=== PATIENT | male | born 1980 | race Caucasian/White ===

== ENCOUNTER → 2016-05-06 | Outpatient (CLI) | payer OTHER ==
[~2016-05-06] MED LIST: ACYC800T PO; BUSP-8 PO; CHOL100027 PO; CLC100X PO; CYCL10TA6 PO; DOCU1TAB6 PO; EMTR1TAB PO; METH10CO PO; METH10SO PO; PHEN1CAP PO
[2016-05-06 12:21] LABS: BASO % 0.3 %; BASO ABS # 0.03 K/uL (0-0.2); COMPLETE YES; EOS % 2.9 %; HEMATOCRIT 49.6 % (42-52); IG% 0.2 %; LYMPH % 24.4 %; LYMPH ABS # 2.55 K/uL (1.2-3.4); MEAN CELL VOLUME 94.5 fL (80-100); MEAN CORPUSCULAR HEMOGLOBIN 32.6 pg (25-34); MEAN CORPUSCULAR HGB CONC 34.5 g/dl (32-36); MEAN PLATELET VOLUME 11.2 fL (7.4-10.4); MONO % 4.5 %; NEUT % 67.7 %; PLATELET COUNT 219 K/uL (130-400); RED BLOOD COUNT 5.25 M/uL (4.7-6.1); WHITE BLOOD COUNT 10.45 K/uL (4.8-10.8)
[2016-05-06 12:27] LABS: ALT/SGPT 36 U/L (12-78); BLOOD UREA NITROGEN 14 mg/dl (7-18); BUN/CREATININE RATIO 13.8 (10-20); CALCIUM 9.2 mg/dl (8.5-10.1); CARBON DIOXIDE 26 mmol/L (21-32); CHLORIDE 103 mmol/L (98-107); CHOLESTEROL 217 mg/dl (0-200); CREATININE 0.99 mg/dl (0.60-1.40); GLUCOSE 109 mg/dl (70-99); POTASSIUM 4.3 mmol/L (3.5-5.1); SODIUM 139 mmol/L (136-145); TRIGLYCERIDES 574 mg/dl (0-150)
[2016-05-06 12:30] LABS: ALB/GLOB RATIO 1.4 (0.9-2); ALKALINE PHOSPHATASE 84 U/L (45-117); AST/SGOT 21 U/L (15-37); CHOLESTEROL/HDL RATIO 4.7; HDL CHOLESTEROL 46 mg/dl
[2016-05-10 22:30] LABS: LSP % CELLS ANALYZED CD4 36 % (30-61); LSP ABSOLUTE CT CD4 984 cells/uL (490-1740); LSP LYMPHOCYTES ABSOLUTE 2741 cells/uL (850-3900)
== END | disposition home or self-care (01) ==
LOC: C.LAB1850 10:32
PROVIDERS: ATTEND Internal Medicine
DX: B20 Human immunodeficiency virus [HIV] disease (principal); E78.1 Pure hyperglyceridemia

== ENCOUNTER 2016-07-18 21:26 | Emergency (ER) | payer OTHER ==
[~2016-07-18] VITALS: Ht 167.6 cm; Wt 78.0 kg
[~2016-07-18 21:26] MED LIST changes: -CYCL10TA6 PO; -DOCU1TAB6 PO; -PHEN1CAP PO
[2016-07-18 21:27] VITALS: TEMP 36.9; Ht 167.6 cm; Wt 78.0 kg
[2016-07-18] MEDS ORDERED: CYCLOBENZAPRINE HCL 10 MG TAB PO STA (22:11)
[2016-07-18] MEDS ORDERED: PHEN30CA PO (22:19)
[2016-07-18] MEDS ORDERED: DOCU1TAB6 PO (22:19)
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
[2016-07-18] MEDS ORDERED: CYCL10TA6 PO (23:24)
[2016-07-18] MEDS ORDERED: FLEXERIL HOME PACK 10 MG VIAL PO ONE (23:30)
[2016-07-18 23:33] VITALS: BP 138/81; PULSE 85; O2SAT 100
[2017-02-14] MEDS ORDERED: DOLU1TAB PO (16:39)
[2017-02-14] MEDS ORDERED: EMTR1TAB10 PO (16:40)
[2017-02-14] MEDS ORDERED: CYCL10TA6 PO (18:27)
[2017-02-14] MEDS ORDERED: HYDR-5688 PO (18:27)
== END 2016-07-18 23:33 | disposition home or self-care (01) ==
LOC: C.EDB 21:26 → C.EDD 23:33
DX: S16.1XXA Strain of muscle, fascia and tendon at neck level, initial encounter (principal); V43.62XA Car passenger injured in collision with other type car in traffic accident, initial encounter; Y92.488 Other paved roadways as the place of occurrence of the external cause; F10.20 Alcohol dependence, uncomplicated; F32.9 Major depressive disorder, single episode, unspecified; B20 Human immunodeficiency virus [HIV] disease; K85.90 Acute pancreatitis without necrosis or infection, unspecified; F17.210 Nicotine dependence, cigarettes, uncomplicated; Z79.899 Other long term (current) drug therapy

== ENCOUNTER → 2016-08-04 | Outpatient (CLI) | payer OTHER ==
[~2016-08-04] MED LIST changes: +ALBU18002 INH; +BENZ1CAP90 PO; -CLC100X PO; +CYCL10TA6 PO; +DOCU1TAB6 PO; +DOLU1TAB PO; +EMTR1TAB10 PO; +HYDR-5688 PO; -METH10CO PO; +PHEN30CA PO; +SYMIN160 INH
[2016-08-04 12:08] LABS: BASO % 0.4 %; BASO ABS # 0.03 K/uL (0-0.2); COMPLETE YES; EOS % 3.7 %; HEMATOCRIT 45.9 % (42-52); IG% 0.3 %; LYMPH % 36.6 %; LYMPH ABS # 2.49 K/uL (1.2-3.4); MEAN CELL VOLUME 93.5 fL (80-100); MEAN CORPUSCULAR HEMOGLOBIN 32.2 pg (25-34); MEAN CORPUSCULAR HGB CONC 34.4 g/dl (32-36); MEAN PLATELET VOLUME 10.9 fL (7.4-10.4); MONO % 9.8 %; NEUT % 49.2 %; PLATELET COUNT 251 K/uL (130-400); RED BLOOD COUNT 4.91 M/uL (4.7-6.1); WHITE BLOOD COUNT 6.81 K/uL (4.8-10.8)
[2016-08-04 12:21] LABS: ALT/SGPT 39 U/L (12-78); AST/SGOT 21 U/L (15-37); BLOOD UREA NITROGEN 16 mg/dl (7-18); CALCIUM 9.2 mg/dl (8.5-10.1); CARBON DIOXIDE 27 mmol/L (21-32); CHLORIDE 111 mmol/L (98-107); CREATININE 0.93 mg/dl (0.60-1.40); GLUCOSE 102 mg/dl (70-99); POTASSIUM 3.9 mmol/L (3.5-5.1); SODIUM 144 mmol/L (136-145)
[2016-08-04 12:26] LABS: ALB/GLOB RATIO 1.3 (0.9-2); ALKALINE PHOSPHATASE 77 U/L (45-117); CHOLESTEROL 160 mg/dl (0-200); CHOLESTEROL/HDL RATIO 3.1; HDL CHOLESTEROL 52 mg/dl; LDL CHOLESTEROL CALCULATED 77 mg/dl; TRIGLYCERIDES 156 mg/dl (0-150); VERY LOW DENSITY LIPOPROT CALC 31 mg/dl
[2016-08-05 02:59] LABS: RAPID PLASMA REAGIN REACTIVE (NONREACT)
[2016-08-05 03:00] LABS: RAPID PLASMA REAGIN TITRE 1 DIL (NR)
[2016-08-06 13:34] LABS: LSP % CELLS ANALYZED CD4 36 % (30-61); LSP ABSOLUTE CT CD4 939 cells/uL (490-1740); LSP LYMPHOCYTES ABSOLUTE 2594 cells/uL (850-3900)
== END | disposition home or self-care (01) ==
LOC: C.LAB1850 09:49
PROVIDERS: ATTEND Internal Medicine Infectious Disease
DX: B20 Human immunodeficiency virus [HIV] disease (principal)

== ENCOUNTER 2017-02-23 17:09 | Emergency (ER) | payer OTHER ==
[~2017-02-23] VITALS: Ht 167.6 cm; Wt 74.4 kg
[~2017-02-23 17:09] MED LIST changes: -ALBU18002 INH; -BENZ1CAP90 PO; -CYCL10TA6 PO; -DOCU1TAB6 PO; -EMTR1TAB PO; -METH10SO PO; -PHEN30CA PO; -SYMIN160 INH
[2017-02-23 17:13] VITALS: BP 148/85; TEMP 36.9; Ht 167.6 cm; Wt 74.4 kg
[2017-02-23] MEDS ORDERED: SYMIN160 INH (17:37)
[2017-02-23] MEDS ORDERED: ALBU18002 INH (17:37)
[2017-02-23] MEDS ORDERED: BENZ1CAP90 PO (17:37)
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
[2017-02-23 17:53] VITALS: PULSE 80; O2SAT 100
== END 2017-02-23 17:53 | disposition home or self-care (01) ==
LOC: C.EDB 17:10 → C.EDD 17:53
DX: J20.9 Acute bronchitis, unspecified (principal); Z21 Asymptomatic human immunodeficiency virus [HIV] infection status; F17.200 Nicotine dependence, unspecified, uncomplicated; F10.20 Alcohol dependence, uncomplicated; Z79.51 Long term (current) use of inhaled steroids

== ENCOUNTER → 2017-03-09 | Outpatient (CLI) | payer OTHER ==
[~2017-03-09] MED LIST changes: +ALBU18002 INH; -HYDR-5688 PO; +OPTIRAY 320 IV PRN
--- NOTE | 2017-03-09 18:13 | DIAGNOSTIC IMAGING REPORT ---
(CHEST FOR PE) ANGIO WITH CLINICAL HISTORY: 36 years-old Male presenting with ^ABNORMAL EKG,COUGH, clinical concern for pulmonary embolus. TECHNIQUE: Multidetector CT angiography of the chest was performed after administration of intravenous contrast. 3-D volumetric and/or maximum intensity projection (MIP) images were subsequently reconstructed for review. IV contrast: 88 mL of Optiray 320. A dose lowering technique was used consistent with the principles of ALARA (as low as reasonably achievable). COMPARISON: Noncontrast CT chest from 04/18/2015. CT DOSE (mGy.cm): The estimated cumulative dose is 314.48 mGy.cm. FINDINGS: Exercise Instruct topogram: Unremarkable. Pulmonary vasculature: The study is adequate for assessment of the pulmonary vascular tree. No filling defect within the pulmonary arteries to suggest embolus. Main pulmonary artery is not enlarged. No flattening of the interventricular septum. No intracardiac intracardiac filling defect. No reflux of contrast into the hepatic veins. Remaining chest: On soft tissue windows, normal thyroid and thoracic inlet. No axillary, supraclavicular, hilar, or mediastinal lymphadenopathy. Normal aorta. Normal heart size. No pericardial or pleural effusion. Upper abdomen normal. On lung windows, minimal dependent opacities likely atelectasis. No other focal infiltrate. Airways patent. On bone windows, normal osseous structures. IMPRESSION: 1. No evidence of pulmonary embolus. No acute intrathoracic pathology. Electronically signed by: Filemon Mccauley M.D. 03/09/2017 6:12 PM Dictated Date/Time: 03/09/2017 6:06 PM
== END | disposition home or self-care (01) ==
LOC: C.CTS 17:24
PROVIDERS: ATTEND Physician Assistant Medical
DX: R94.31 Abnormal electrocardiogram [ECG] [EKG] (principal); R05 Cough

== ENCOUNTER 2017-04-10 14:20 | Emergency (ER) | payer OTHER ==
[~2017-04-10] VITALS: Ht 167.6 cm; Wt 73.0 kg
[~2017-04-10 14:20] MED LIST changes: -ACYC800T PO; -BUSP-8 PO; -CHOL100027 PO; -DOLU1TAB PO; -EMTR1TAB10 PO; -OPTIRAY 320 IV PRN
[2017-04-10 14:22] VITALS: TEMP 37; Ht 167.6 cm; Wt 73.0 kg
[2017-04-10] MEDS ORDERED: HYDROCODONE/HOMATROPINE SYRUP 5MG/1.5MG 5ML UDP PO STA (14:29)
[2017-04-10] MEDS ORDERED: ALBUTEROL HFA 8 GM INHALER INH ONE (14:30)
--- NOTE | 2017-04-10 14:34 | EMERGENCY ROOM VISIT NOTE ---
History Report prepared by Mason: Zachary Kemp Under the Supervision of: Dr. Yonny Livingston M.D. First contact with patient: 14:23 Chief Complaint: COUGH Stated Complaint: PERSISTENT DRY COUGH, CONGESTION History of Present Illness The patient is a 37 year old male who presents to the Emergency Room with complaints of a persistent cough that started 3 days ago. He states that he was here a month ago with a similar cough and was diagnosed with bronchitis, and was treated and was doing well until 3 days ago. He says that the cough is mostly dry, except for a bit of phlegm that is produced in the shower in the morning. He notes that the congestion is in his chest, and denies any notable nasal congestion. He also denies any fevers. The patient says that he had a script sent in for an inhaler, but insurance did not cover it. He states that he is a current smoker. The patient has no history of asthma. The patient had a CT of his chest done on March 09. There was no pulmonary embolism seen at that time. Source of History: patient Onset: 3 days ago Position: other (global - cough) Symptom Intensity: had bronchitis a month ago Quality: other (mostly dry) Timing: other (persistent) Associated Symptoms: No fevers Note: Associated symptoms: Chest congestion. Denies nasal congestion. Review of Systems See HPI for pertinent positives & negatives. A total of 10 systems reviewed and were otherwise negative. Past Medical & Surgical Medical Problems: (1) Acute drug intoxication (2) Alcohol dependence (3) clostridium difficile (4) Constipation (5) Depressive disorder (6) Fracture of calcaneus (7) Genital Herpes Nos (8) HUMAN IMMUNODEFICIENCY VIRUS [HIV] DISEASE (9) Muscle spasm of left shoulder (10) Neck pain on right side (11) Pancreatitis (12) Rotator cuff strain (13) Suicide-Drug/Medicin Nec (14) Superficial burn of hand (15) Tobacco Use Disorder Family History No pertinent family history Social History Smoking Status: Current Every Day Smoker Alcohol Use: occasionally Drug Use: other Marital Status: single Housing Status: lives alone Occupation Status: employed Current/Historical Medications Scheduled Albuterol Hfa (Ventolin Hfa), 3 PUFFS INH Q6H Buspirone Hcl (Buspirone Hcl), 10 MG PO HS Cholecalciferol (Vitamin D 1000 Unit), 1,000 INTER.UNIT PO DAILY Dolutegravir Sodium (Tivicay), Unknown Dose PO DAILY Emtricitabine-Tenofovir Alafen (Descovy 200-25 mg), 1 TAB PO DAILY Scheduled PRN Acyclovir (Zovirax), 800 MG PO Q8 PRN for Cold Sores Hydrocodone W/ Homatropine (Hycodan 5/1.5MG 5 Ml), 5-10 ML PO Q4H PRN for Cough Allergies Coded Allergies: No Known Allergies (Unverified , NONE, 04/10/17) Physical Exam Vital Signs Date Time Temp Pulse Resp B/P (MAP) Pulse Ox O2 Delivery O2 Flow Rate FiO2 04/10/17 15:33 101 18 151/94 99 04/10/17 14:22 37.0 107 16 149/85 97 Room Air Physical Exam GENERAL: Patient is in no acute distress. HEENT: No acute trauma, normocephalic atraumatic, mucous membranes moist, no nasal congestion, no scleral icterus. No throat erythema or exudate. NECK: No stridor, no adenopathy, no meningismus, trachea is midline. LUNGS: Decreased breath sounds bilaterally. Dry cough noted, no wheezing or rhonchi. HEART: Without murmurs gallops or rubs, regular rate and rhythm. ABDOMEN: Soft, nontender, bowel sounds positive, no hernias, no peritonitis. EXTREMITIES: No cyanosis or edema, full range of motion of all the joints without pain or difficulty, no signs for acute trauma. NEUROLOGIC: Oriented x 3, no acute motor or sensory deficits, no focal weakness. SKIN: No rash, no jaundice, no diaphoresis. Medical Decision & Procedures ER Provider Diagnostic Interpretation: X-ray results as stated below per interpretation by me and the radiologist: SINGLE VIEW CHEST CLINICAL HISTORY: Cough. FINDINGS: An AP, portable, upright chest radiograph is compared to study dated 03/08/2013 and correlated with chest CT dated 03/09/2017. Pressure degraded The cardiomediastinal silhouette is unremarkable. The lungs and pleural spaces are clear. No pneumothorax is seen. The bony thorax is grossly intact. IMPRESSION: No acute cardiopulmonary abnormality. Electronically signed by: Yonny Garcia M.D. 04/10/2017 2:42 PM Dictated Date/Time: 04/10/2017 2:41 PM Medications Administered Medications (Trade) Dose Ordered Sig/Tammie Route Start Time Stop Time Status Last Admin Dose Admin Albuterol (Ventolin Hfa Inhaler) 3 puffs NOW ONCE INH 04/10/17 14:30 04/10/17 14:31 DC 04/10/17 15:05 3 PUFFS Hydrocodone Bit/ Homatropine Methylb (Hycodan Syrup) 5 ml NOW STAT PO 04/10/17 14:29 04/10/17 14:31 DC 04/10/17 15:05 5 ML ED Course 1426: The patient was evaluated in room A10. A complete history and physical exam was performed. 1429: Ordered Hycodan Syrup 5 ml PO. 1430: Ordered Ventolin Hfa Inhaler 3 puffs INH. 1515: Reevaluated the patient and he is resting comfortably. Discussed results and discharge instructions: he verbalized understanding and agreement. The patient is ready for discharge. Medical Decision Differential diagnosis includes but is not limited to bronchitis or pneumonia, pneumothorax, pharyngitis, flu-like illness, bronchospasm. The patient presents to the ER with a cough. On exam, he has diminished breath sounds. There is no pharyngitis. He was not febrile or toxic. He was not hypoxic. Chest film does not show pneumonia, CHF or pneumothorax. The patient has acute bronchitis, likely viral. He is being discharged on albuterol and Hycodan. Doses of each were given here. Patient was encouraged to return for worsening symptoms. [place] Drug Monitoring Program Search Results: patient reviewed within database, no issues identified Medication Reconcilliation Current Medication List: was personally reviewed by me Blood Pressure Screening Patient's blood pressure: Elevated blood pressure Blood pressure disposition: Elevated BP felt to be situational Impression Primary Impression: Acute bronchitis Additional Impression: Cough Scribe Attestation The scribe's documentation has been prepared under my direction and personally reviewed by me in its entirety. I confirm that the note above accurately reflects all work, treatment, procedures, and medical decision making performed by me. Departure Information Dispostion Home / Self-Care Prescriptions Albuterol Hfa (VENTOLIN HFA) 200 Puffs/56011 Mcg Aers 3 PUFFS INH Q6H, #1 INHALER Prov: Yonny Livingston M.D. 04/10/17 Hydrocodone W/ Homatropine (HYCODAN 5/1.5MG 5 ML) 1 Syp Syp 5-10 ML PO Q4H Y for Cough, #120 ML Prov: Yonny Livingston M.D. 04/10/17 Referrals Augustin Pacheco M.D. (PCP) Forms HOME CARE DOCUMENTATION FORM, IMPORTANT VISIT INFORMATION Patient Instructions My [facility] Additional Instructions rest fluids albuterol 3 puffs every 4 hours hycodan 1 tsp every 4 hours for cough as needed return if worsening chest film today was clear Problem Qualifiers
--- NOTE | 2017-04-10 14:43 | DIAGNOSTIC IMAGING REPORT ---
SINGLE VIEW CHEST CLINICAL HISTORY: Cough. FINDINGS: An AP, portable, upright chest radiograph is compared to study dated 03/08/2013 and correlated with chest CT dated 03/09/2017. Pressure degraded The cardiomediastinal silhouette is unremarkable. The lungs and pleural spaces are clear. No pneumothorax is seen. The bony thorax is grossly intact. IMPRESSION: No acute cardiopulmonary abnormality. Electronically signed by: Yonny Garcia M.D. 04/10/2017 2:42 PM Dictated Date/Time: 04/10/2017 2:41 PM
[2017-04-10] MEDS ORDERED: VNTHFA/IN INH (15:17)
[2017-04-10] MEDS ORDERED: HYDR5SYP11 PO (15:17)
[2017-04-10 15:33] VITALS: BP 151/94; PULSE 101; O2SAT 99
[2017-05-04] MEDS ORDERED: CHOL100027 PO (07:33)
[2017-05-04] MEDS ORDERED: ACYC800T PO (13:46)
[2017-05-04] MEDS ORDERED: BUSP-8 PO (13:46)
[2017-05-04] MEDS ORDERED: DOLU1TAB PO (16:39)
[2017-05-04] MEDS ORDERED: EMTR1TAB10 PO (16:40)
== END 2017-04-10 15:36 | disposition home or self-care (01) ==
LOC: C.EDB 14:21 → C.EDA 15:36
DX: J20.9 Acute bronchitis, unspecified (principal); F17.210 Nicotine dependence, cigarettes, uncomplicated; J45.909 Unspecified asthma, uncomplicated; F32.9 Major depressive disorder, single episode, unspecified

== ENCOUNTER 2017-05-04 17:13 | Emergency (ER) | payer OTHER ==
[~2017-05-04] VITALS: Ht 167.6 cm; Wt 74.1 kg
[~2017-05-04 17:13] MED LIST changes: +ACYC800T PO; -ALBU18002 INH; +BUSP-8 PO; +CHOL100027 PO; +DOLU1TAB PO; +EMTR1TAB10 PO; +VNTHFA/IN INH
[2017-05-04 17:31] VITALS: BP 148/94; PULSE 84; TEMP 36.8; O2SAT 98; Ht 167.6 cm; Wt 74.1 kg
[2017-05-04] MEDS ORDERED: VNTHFA/IN INH (17:51)
--- NOTE | 2017-05-04 18:03 | EMERGENCY ROOM VISIT NOTE ---
ED Visit Note First contact with patient: 17:37 CHIEF COMPLAINT: Needs tongue biopsy HISTORY of present illness: This 37-year-old male presents the ER with chief complaint that he needs a tongue biopsy. The patient was at [facility] and was told that he has white patches on the right side of his tongue which are suspicious for cancer. They referred him to an oral surgeon in [place]. The patient states they told him to get it done as soon as possible. He states he cannot get there until next week. The patient states that he has a throbbing pain on the opposite side of his tongue. The patient admits to smoking tobacco but denies any chewing tobacco. REVIEW OF SYSTEMS: 6 system review was performed and was negative unless stated otherwise in history of present illness. PMH: The patient is healthy; see chronic problem list SOCIAL HISTORY: Patient has a history of alcohol abuse. Patient admits to smoking tobacco. PHYSICAL EXAM: Vital Signs: Were reviewed Reviewed Nurse's notes. GENERAL: 37- year-old white male appears in no acute distress. MENTAL STATUS: Alert and oriented. MOUTH: On the right lateral aspect of the tongue there are 2 white irregular patches .the left side of the tongue without any lesions. NECK: Supple, no lymphadenopathy noted EMERGENCY COURSE: The patient was evaluated. I discussed with the patient that we do not do biopsies in the emergency room. He then went on to say that he was here for pain on the opposite side of his tongue. I told him to use Orajel and the patient got up and left the ER. DIAGNOSIS: Leukoplakia TREATMENT PLAN: Follow up with oral surgery as recommended by your dentist. 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 Status: Chronic (9) Muscle spasm of left shoulder Status: Resolved (10) Neck pain on right side Status: Resolved (11) Pancreatitis Status: Resolved (12) Rotator cuff strain Status: Resolved (13) Suicide-Drug/Medicin Nec Status: Resolved (14) Superficial burn of hand Status: Resolved (15) Tobacco Use Disorder Status: Chronic Current/Historical Medications Scheduled Buspirone Hcl (Buspirone Hcl), 10 MG PO HS Cholecalciferol (Vitamin D 1000 Unit), 1,000 INTER.UNIT PO DAILY Dolutegravir Sodium (Tivicay), 50 MG PO DAILY Emtricitabine-Tenofovir Alafen (Descovy 200-25 mg), 1 TAB PO DAILY Scheduled PRN Acyclovir (Zovirax), 800 MG PO Q8 PRN for Cold Sores Albuterol Hfa (Ventolin Hfa), 3 PUFFS INH Q6H PRN for SOB/Wheezing Allergies Coded Allergies: No Known Allergies (Unverified , NONE, 04/10/17) Vital Signs Date Time Temp Pulse Resp B/P (MAP) Pulse Ox O2 Delivery O2 Flow Rate FiO2 05/04/17 17:31 36.8 84 18 148/94 98 Room Air Departure Information Referrals Augustin Pacheco M.D. (PCP) Patient Instructions My [facility]
== END 2017-05-04 17:59 | disposition home or self-care (01) ==
LOC: C.EDB 17:16 → C.EDD 17:59
DX: K13.21 Leukoplakia of oral mucosa, including tongue (principal); F17.200 Nicotine dependence, unspecified, uncomplicated; F10.20 Alcohol dependence, uncomplicated; F32.9 Major depressive disorder, single episode, unspecified; A60.02 Herpesviral infection of other male genital organs; B20 Human immunodeficiency virus [HIV] disease; Z86.19 Personal history of other infectious and parasitic diseases

== ENCOUNTER → 2017-08-10 | Outpatient (CLI) | payer OTHER ==
[2017-08-10 12:42] LABS: BASO % 0.5 %; BASO ABS # 0.03 K/uL (0-0.2); EOS % 1.7 %; EOS ABS # 0.11 K/uL (0-0.5); HEMATOCRIT 43.2 % (42-52); IG# 0.02 K/uL (0.00-0.02); LYMPH % 31.6 %; LYMPH ABS # 2.02 K/uL (1.2-3.4); MEAN CELL VOLUME 94.9 fL (80-100); MEAN CORPUSCULAR HGB CONC 34.7 g/dl (32-36); MEAN PLATELET VOLUME 10.9 fL (7.4-10.4); MONO % 12.2 %; MONO ABS # 0.78 K/uL (0.11-0.59); NEUT % 53.7 %; NEUT ABS # 3.43 K/uL (1.4-6.5); PLATELET COUNT 214 K/uL (130-400); RED CELL DISTRIBUTION WIDTH CV 13.2 % (11.5-14.5); RED CELL DISTRIBUTION WIDTH SD 45.6 fL (36.4-46.3); WHITE BLOOD COUNT 6.39 K/uL (4.8-10.8)
[2017-08-10 13:16] LABS: BLOOD UREA NITROGEN 14 mg/dl (7-18); CALCIUM 8.8 mg/dl (8.5-10.1); CARBON DIOXIDE 28 mmol/L (21-32); CREATININE 0.83 mg/dl (0.60-1.40); GLUCOSE 101 mg/dl (70-99); POTASSIUM 4.3 mmol/L (3.5-5.1); SODIUM 140 mmol/L (136-145)
[2017-08-12 20:32] LABS: EBV EARLY ANTIGEN AB < 9.00 U/ML; LSP % CELLS ANALYZED CD4 41 % (30-61); LSP ABSOLUTE CT CD4 844 cells/uL (490-1740)
== END | disposition home or self-care (01) ==
LOC: C.LAB1850 10:29
PROVIDERS: ATTEND Internal Medicine Infectious Disease
DX: R05 Cough (principal); B20 Human immunodeficiency virus [HIV] disease

== ENCOUNTER 2018-06-25 15:50 | Inpatient (IN) ==
[2018-06-25] MEDS ORDERED: LORazepam 1 MG TAB PO STA (16:29)
[2018-06-25 16:37] LABS: Appearance Urine Clear (Clear); Bilirubin Urine Negative (Negative); Blood Urine Negative (Negative); Color Urine Yellow; Glucose Urine UA Negative (Negative); Ketones Urine Negative (Negative); Leukocyte Esterase Urine Negative (Negative); Nitrite Urine Negative (Negative); Protein Urine Negative (Negative); Specific Gravity Urine 1.022 (1.000-1.030); Urobilinogen Urine Negative (Negative); pH Urine 5.5 (4.5-7.5)
[2018-06-25 16:55] LABS: Amphetamines+Metham, Urine Neg (Neg); Barbiturates, Urine Neg (Neg); Benzodiazepine, Urine Neg (Neg); Cocaine, Urine Neg (Neg); MDMA (Ecstacy), Urine Neg (Neg); Methadone, Urine Neg (Neg); Opiate, Urine Neg (Neg); Phencyclidine, Urine Neg (Neg)
--- NOTE | 2018-06-25 17:01 | Emergency Department Note ---
Entered by Nuvia Callaway acting as a scribe for History of Present Illness General Chief complaint: Mental Health Evaluation Stated complaint: MENTAL HEALTH EVAL Source: patient History of Present Illness Provider complaint: mental health evaluation Onset (ago): hour(s) (today) Location: head Pain Consistency: + constant Maximum Pain Intensity: 8 Quality: + other (mental health evaluation) Associated symptoms: + other (thoughts of wanting to hurt himself) The patient is a 38 year old male who presents to the Emergency Room with complaints of a mental health evaluation today. The patient states that "everything is on my plate right now." He states that he has lost 30 pounds in the last 6 months. The patient states that he was smoking crystal meth a couple times per week and states that he last used it 3 days ago. The patient states that he also mixed it with GHP. He also reports that he slept about 18 hours over a course of 2 weeks. The patient denies heroine use. He states that he has had thoughts of wanting to hurt himself and reports feeling overwhelmed. The patient states that he was thinking of taking benzos. He also reports that he found his neighbor who hanged himself last year. The patient states that he was admitted in 2007 as he called [facility] and said that he was either going to kill himself or someone else. Home Medications Home Medications Medication Instructions Recorded Confirmed Type CHOLECALCIFEROL (VITAMIN D 1000 1,000 inter.unit PO DAILY #0 cap 11/26/11 06/25/18 History UNIT) BUSPIRONE HCL 10 mg PO HS #0 tab 09/12/14 06/25/18 History DOLUTEGRAVIR SODIUM (TIVICAY) 50 mg PO DAILY #0 02/14/17 06/25/18 History Emtricitabine-Tenofovir Alafen 1 tab PO DAILY #0 02/14/17 06/25/18 History (Descovy 200-25 mg) Allergies Allergy/AdvReac Type Severity Reaction Status Date / Time No Known Allergies Allergy NONE Unverified 04/10/17 14:47 Past Med/Surg History Medical History Anxiety (Chronic) Social History Preferred Language: Bulgarian Communication Ability: Effective Manager Of Global Required: No Beliefs That Will Affect Care: None (Billie, attends [facility] at times ) Feels Safe at Home: Yes Smoking Status: Former smoker (quit 06/22/18) Review of Systems See HPI for pertinent positives & negatives. and A total of 10 systems reviewed and were otherwise negative Physical Exam Vital Signs Vital Signs - 24 hr 06/25/18 18:22 06/25/18 20:09 06/25/18 20:49 Temperature 36.5 C Temperature Source Oral Pulse Rate 82 Pulse Rate [Finger] 95 H 75 Pulse Rate [Left Brachial] Pulse Rhythm [Finger] Regular Pulse Rhythm [Left Brachial] Pulse Strength [Finger] Normal Pulse Strength [Left Brachial] Respiratory Rate 17 18 18 Respiratory Effort / Characteristics Non-Labored Respiratory Depth Normal Respiratory Pattern Regular Blood Pressure 130/68 Blood Pressure [Left Arm] Blood Pressure [Right Arm] 140/74 120/69 Blood Pressure Mean [Left Arm] Blood Pressure Mean [Right Arm] 96 86 Blood Pressure Position [Left Arm] Blood Pressure Position [Right Arm] Lying Sitting Pulse Oximetry 99 99 98 Oxygen Delivery Method Room Air Room Air Room Air 06/26/18 06:44 06/26/18 06:46 Temperature 36.6 C Temperature Source Oral Pulse Rate Pulse Rate [Finger] Pulse Rate [Left Brachial] 69 82 Pulse Rhythm [Finger] Pulse Rhythm [Left Brachial] Regular Regular Pulse Strength [Finger] Pulse Strength [Left Brachial] Normal Normal Respiratory Rate 16 Respiratory Effort / Characteristics Non-Labored Respiratory Depth Normal Respiratory Pattern Regular Blood Pressure Blood Pressure [Left Arm] 107/72 115/81 Blood Pressure [Right Arm] Blood Pressure Mean [Left Arm] 83 92 Blood Pressure Mean [Right Arm] Blood Pressure Position [Left Arm] Lying Sitting Blood Pressure Position [Right Arm] Pulse Oximetry Oxygen Delivery Method GENERAL: Patient is awake alert in no acute distress patient is resting comfortably and showing no signs of anxiety EYES: The conjunctivae are clear. The pupils are round and reactive. EARS, NOSE, MOUTH AND THROAT: The nose is without any evidence of any deformity. Mucous membranes are moist tongue is midline NECK: The neck is nontender and supple. RESPIRATORY: Normal respiratory effort is noted there is no evidence of wheezing rhonchi or rales CARDIOVASCULAR: Regular rate and rhythm noted there no murmurs rubs or gallops normal S1 normal S2 GASTROINTESTINAL: The abdomen is soft. Bowel sounds are present in all quadrants. Abdomen is nontender MUSCULOSKELETAL/EXTREMITIES: There is no evidence of gross deformity full range of motion is noted in the hips and shoulders SKIN: There is no obvious evidence of any rash. There are no petechiae, pallor or cyanosis noted. NEUROLOGIC: Patient is awake alert and oriented x3 strength is symmetric patellar reflexes are 2+ bilaterally PSYCH: Patient is awake and alert. Patient has suicidal ideation with plan to overdose on pills. Patient's affect is flat. Course 1616: Past medical records reviewed. The patient was evaluated in room A5, and a complete history and physical examination were performed. 184: The patient was referred to [facility]. 2030: The patient was signed out to Dr. Nino. Administered Medications Atomoxetine HCl (Strattera) 40 mg PO QAM [facility] Stop: 06/29/18 09:01 Last Admin: 06/26/18 13:20 Dose: 40 mg Documented by: [id number] Dolutegravir Sodium (Tivicay) 1 ea PO DAILY LISA Stop: 07/26/18 08:59 Last Admin: 06/26/18 11:53 Dose: 1 ea Documented by: [id number] Hydroxyzine HCl (Vistaril) 50 mg PO HSZ PRN PRN Reason: Insomnia Stop: 07/25/18 20:32 Last Admin: 06/25/18 22:29 Dose: 50 mg Documented by: [id number] Hydroxyzine HCl (Vistaril) 25 mg PO Q4H PRN PRN Reason: Anxiety Stop: 07/25/18 20:32 Last Admin: 06/26/18 11:52 Dose: 25 mg Documented by: [id number] Pt's Own Med: Descovy 200mg/25mg Tab 1 ea PO DAILY LISA Stop: 07/26/18 08:59 Last Admin: 06/26/18 11:53 Dose: 1 tabs Documented by: [id number] Vitamin D (Vitamin D3) 1,000 units PO QAM LISA Stop: 07/26/18 08:59 Last Admin: 06/26/18 11:52 Dose: 1,000 units Documented by: [id number] Discontinued Medications Buspirone HCl (Buspar) 10 mg PO ONE ONE Stop: 06/25/18 22:31 Last Admin: 06/25/18 22:29 Dose: 10 mg Documented by: [id number] Influenza Virus Vaccine Quadrival (Flucelvax Quad Vaccine) 0.5 ml IM .ONCE ONE Stop: 06/26/18 05:46 Last Admin: 06/26/18 11:56 Dose: Not Given Documented by: [id number] Lorazepam (Ativan) 1 mg PO NOW STA Stop: 06/25/18 16:30 Last Admin: 06/25/18 16:34 Dose: 1 mg Documented by: [id number] Lorazepam (Ativan) 1 mg SL NOW STA Stop: 06/25/18 19:32 Last Admin: 06/25/18 19:36 Dose: 1 mg Documented by: [id number] Miscellaneous (Order Awaiting Action) 1 ea N/A QS LISA Stop: 07/25/18 21:59 Last Admin: 06/25/18 22:32 Dose: Not Given Documented by: [id number] Miscellaneous (Order Awaiting Action) 1 ea N/A QS LISA Stop: 07/25/18 21:59 Last Admin: 06/25/18 22:32 Dose: Not Given Documented by: [id number] Pneumococcal Polyvalent Vaccine (Pneumovax-23) 25 mcg IM .ONCE ONE Stop: 06/26/18 05:46 Last Admin: 06/26/18 11:57 Dose: Not Given Documented by: [id number] Medical Decision Making Differential Diagnosis Differential diagnosis: Etiologies such as psychiatric disorder, infection, hypoglycemia, electrolyte abnormalities, cardiac sources, intracerebral event, toxicological process, neurologic disorder, as well as others were entertained. Medical Records Attestation: I reviewed the patient's medical records. Home Medications Current Medication List: was personally reviewed by me Laboratory Data Attestation: I reviewed the patient's lab results. Result diagrams: 06/25/18 16:46 06/25/18 16:46 Lab Results 06/25/18 06/25/18 06/25/18 Range/Units 16:10 16:10 16:46 WBC 8.90 (4.8-10.8) K/uL RBC 4.68 L (4.7-6.1) M/uL Hgb 15.3 (14.0-18.0) g/dL Hct 44.8 (42-52) % MCV 95.7 (80-100) fL MCH 32.7 (25-34) pg MCHC 34.2 (32-36) g/dL RDW Std Deviation 46.1 (36.4-46.3) fL RDW Coeff of [place] 13.2 (11.5-14.5) % Plt Count 270 (130-400) K/uL MPV 10.0 (7.4-10.4) fL Immature Gran % (Auto) 0.3 % Neut % (Auto) 69.6 % Lymph % (Auto) 22.2 % Swift % (Auto) 7.1 % Eos % (Auto) 0.7 % Baso % (Auto) 0.1 % Immature Gran # (Auto) 0.03 H (0.00-0.02) K/uL Neut # (Auto) 6.19 (1.4-6.5) K/uL Lymph # (Auto) 1.98 (1.2-3.4) K/uL Swift # (Auto) 0.63 H (0.11-0.59) K/uL Eos # (Auto) 0.06 (0-0.5) K/uL Baso # (Auto) 0.01 (0-0.2) K/uL Sodium (136-145) mmol/L Potassium (3.5-5.1) mmol/L Chloride (98-107) mmol/L Carbon Dioxide (21-32) mmol/L Anion Gap (3-11) BUN (7-18) mg/dl Creatinine (0.6-1.4) mg/dl Est Cr Clr Drug Dosing ml/min Est GFR ( Amer) Est GFR (Non-Af Amer) BUN/Creatinine Ratio (10-20) Glucose (70-99) mg/dl Calcium (8.5-10.1) mg/dl Total Bilirubin (0.2-1) mg/dl AST (15-37) U/L ALT (12-78) U/L Alkaline Phosphatase (45-117) U/L Total Protein (6.4-8.2) gm/dl Albumin (3.4-5.0) gm/dl Globulin (2.5-4.0) gm/dl Albumin/Globulin Ratio (0.9-2) TSH (0.300-4.500) uIu/ml Urine Color Yellow Urine Appearance Clear (Clear) Urine pH 5.5 (4.5-7.5) Ur Specific [place] 1.022 (1.000-1.030) Urine Protein Negative (Negative) Urine Glucose (UA) Negative (Negative) Urine Ketones Negative (Negative) Urine Blood Negative (Negative) Urine Nitrite Negative (Negative) Urine Bilirubin Negative (Negative) Urine Urobilinogen Negative (Negative) Ur Leukocyte Esterase Negative (Negative) Salicylates (2.8-20) mg/dl Urine Opiates Screen Neg (Neg) Ur Methadone, Qual Neg (Neg) Acetaminophen (10-30) ug/ml Urine Barbiturates Neg (Neg) Ur Phencyclidine (PCP) Neg (Neg) U Amphetamin/Meth Scrn Neg (Neg) MDMA (Ecstasy) Screen Neg (Neg) U Benzodiazepines Scrn Neg (Neg) Ur Cocaine Metabolite Neg (Neg) U Marijuana (THC) Screen Neg (Neg) Ethyl Alcohol mg/dL (0-3) mg/dl 06/25/18 06/25/18 06/25/18 Range/Units 16:46 16:46 16:46 WBC (4.8-10.8) K/uL RBC (4.7-6.1) M/uL Hgb (14.0-18.0) g/dL Hct (42-52) % MCV (80-100) fL MCH (25-34) pg MCHC (32-36) g/dL RDW Std Deviation (36.4-46.3) fL RDW Coeff of [place] (11.5-14.5) % Plt Count (130-400) K/uL MPV (7.4-10.4) fL Immature Gran % (Auto) % Neut % (Auto) % Lymph % (Auto) % Swift % (Auto) % Eos % (Auto) % Baso % (Auto) % Immature Gran # (Auto) (0.00-0.02) K/uL Neut # (Auto) (1.4-6.5) K/uL Lymph # (Auto) (1.2-3.4) K/uL Swift # (Auto) (0.11-0.59) K/uL Eos # (Auto) (0-0.5) K/uL Baso # (Auto) (0-0.2) K/uL Sodium 137 (136-145) mmol/L Potassium 4.2 (3.5-5.1) mmol/L Chloride 104 (98-107) mmol/L Carbon Dioxide 31 (21-32) mmol/L Anion Gap 2.0 L (3-11) BUN 13 (7-18) mg/dl Creatinine 0.86 (0.6-1.4) mg/dl Est Cr Clr Drug Dosing 101.3 ml/min Est GFR ( Amer) 126.6 Est GFR (Non-Af Amer) 109.2 BUN/Creatinine Ratio 15.8 (10-20) Glucose 80 (70-99) mg/dl Calcium 8.3 L (8.5-10.1) mg/dl Total Bilirubin 0.3 (0.2-1) mg/dl AST 13 L (15-37) U/L ALT 25 (12-78) U/L Alkaline Phosphatase 62 (45-117) U/L Total Protein 6.5 (6.4-8.2) gm/dl Albumin 3.2 L (3.4-5.0) gm/dl Globulin 3.3 (2.5-4.0) gm/dl Albumin/Globulin Ratio 1.0 (0.9-2) TSH 0.780 (0.300-4.500) uIu/ml Urine Color Urine Appearance (Clear) Urine pH (4.5-7.5) Ur Specific [place] (1.000-1.030) Urine Protein (Negative) Urine Glucose (UA) (Negative) Urine Ketones (Negative) Urine Blood (Negative) Urine Nitrite (Negative) Urine Bilirubin (Negative) Urine Urobilinogen (Negative) Ur Leukocyte Esterase (Negative) Salicylates < 1.7 L (2.8-20) mg/dl Urine Opiates Screen (Neg) Ur Methadone, Qual (Neg) Acetaminophen < 2 L (10-30) ug/ml Urine Barbiturates (Neg) Ur Phencyclidine (PCP) (Neg) U Amphetamin/Meth Scrn (Neg) MDMA (Ecstasy) Screen (Neg) U Benzodiazepines Scrn (Neg) Ur Cocaine Metabolite (Neg) U Marijuana (THC) Screen (Neg) Ethyl Alcohol mg/dL < 3.0 (0-3) mg/dl Blood Pressure Blood Pressure Findings: Normal blood pressure MDM Narrative The patient is a 38-year-old male who presented to the emergency department for mental health evaluation. The patient also has some recent substance abuse history. The patient was reevaluated multiple times. The patient was medically cleared in the emergency department. He was evaluated by the mental health onsite case manager and was felt to be a good candidate for inpatient management. The patient was treated with Ativan in the emergency department. Doing much better on subsequent reevaluation. The patient was felt to be a good candidate for inpatient management. A referral was made for inpatient management. The patient was comfortable and was agreeable to inpatient treatment. The patient was signed out to Dr. Nino at change of shift. Please see his note for final disposition and plan. Impression & Plan Depression, Substance abuse, Suicidal ideation Discharge Plan Visit Data *Final* Discharge Date/Time: 06/25/18 20:09 Chief Complaint: Mental Health Evaluation Stated Complaint: MENTAL HEALTH EVAL ED Provider: Faraz Baptiste Discharge Problem: Depression, Substance abuse, Suicidal ideation Patient Disposition: Admitted As Inpatient Discharge Instructions Interventions: ED Discharge Assessment Last Done: 06/25/18 20:09 Discharge Problem: Depression Qualifiers: Depression Type: unspecified Qualified Code(s): F32.9 - Major depressive disorder, single episode, unspecified The scribe's documentation has been prepared under my direction and personally reviewed by me in its entirety. I confirm that the note above accurately reflects all work, treatment, procedures, and medical decision making performed by me.
[2018-06-25 17:02] LABS: Basophils # (auto) 0.01 K/uL (0-0.2); Basophils % (auto) 0.1 %; Eosinophils # (auto) 0.06 K/uL (0-0.5); Eosinophils % (auto) 0.7 %; Hematocrit (blood only) 44.8 % (42-52); Hemoglobin 15.3 g/dL (14.0-18.0); Immature Granulocytes # (auto) 0.03 K/uL (0.00-0.02); Immature Granulocytes % (auto) 0.3 %; Lymphocytes # (auto) 1.98 K/uL (1.2-3.4); Lymphocytes % (auto) 22.2 %; Mean Corpuscular Hgb Conc 34.2 g/dL (32-36); Mean Corpuscular Volume 95.7 fL (80-100); Monocytes # (auto) 0.63 K/uL (0.11-0.59); Monocytes % (auto) 7.1 %; Neutrophils # (auto) 6.19 K/uL (1.4-6.5); Neutrophils % (auto) 69.6 %; Platelet Count 270 K/uL (130-400); RDW Coefficient of Variation 13.2 % (11.5-14.5); RDW Standard Deviation 46.1 fL (36.4-46.3); Red Blood Count 4.68 M/uL (4.7-6.1)
[2018-06-25 17:20] LABS: Albumin Level 3.2 gm/dl (3.4-5.0); BUN Creatinine Ratio 15.8 (10-20); Calcium 8.3 mg/dl (8.5-10.1); Creatinine Clr Calc Pharmacy 101.3 ml/min; Est GFR (African American) 126.6; Est GFR (Non-African American) 109.2; Potassium 4.2 mmol/L (3.5-5.1)
[2018-06-25 17:23] LABS: Acetaminophen < 2 ug/ml (10-30); Salicylate < 1.7 mg/dl (2.8-20)
[2018-06-25 17:31] LABS: Bilirubin,Total 0.3 mg/dl (0.2-1); Globulin 3.3 gm/dl (2.5-4.0); Total Protein 6.5 gm/dl (6.4-8.2)
[2018-06-25] MEDS ORDERED: LORazepam 1 MG TAB SL STA (19:31)
[2018-06-25] MEDS ORDERED: MAGNESIUM HYDROXIDE SUSP 30 ML UDC PO PRN (20:33)
[2018-06-25] MEDS ORDERED: ALUMINUM/MAGNESIUM SUSP 30 ML UDC PO PRN (20:33)
[2018-06-25] MEDS ORDERED: BISMUTH SUBSALICYLATE PER ML OMNICELL CHARGE PO PRN (20:33)
[2018-06-25] MEDS ORDERED: NICOTINE POLACRILEX 2 MG GUM MT PRN (20:33)
[2018-06-25] MEDS ORDERED: ACETAMINOPHEN 325 MG TAB PO PRN (20:33)
[2018-06-25] MEDS ORDERED: SODIUM CHLORIDE 0.65% NA SOLN 45 ML (OCEAN) PRN (20:33)
--- NOTE | 2018-06-25 20:41 | Emergency Department Note ---
ED Visit Note Admitted to 3[facility]. Given 1mg SL Ativin by me in the ED. . : Depression Qualifiers: Depression Type: unspecified Qualified Code(s): F32.9 - Major depressive disorder, single episode, unspecified
[2018-06-25] MEDS ORDERED: BusPIRone 15 MG TAB PO SCH (21:00)
[2018-06-25 21:13] VITALS: O2SAT 98
[2018-06-26] MEDS ORDERED: INFLUENZA ADMINISTRATION CHARGE ONE (05:45)
[2018-06-26] MEDS ORDERED: PNEUMOCOCCAL POLYSACCHARIDES 25 MCG/0.5 ML VIAL/SYR IM ONE (05:45)
[2018-06-26] MEDS ORDERED: PNEUMOCOCCAL ADMINISTRATION CHARGE ONE (05:45)
[2018-06-26] MEDS ORDERED: INFLUENZA VIRUS QUAD VACCINE 0.5 ML SYR IM ONE (05:45)
[2018-06-26] MEDS: CHOLECALCIFEROL 1,000 UNITS TAB PO SCH (11:52)
[2018-06-26] MEDS: DESCOVY PO SCH (11:53)
[2018-06-26] MEDS: DOLUTEGRAVIR SODIUM PO SCH (11:53)
[2018-06-26] MEDS: ATOMOXETINE HCL 40 MG CAPSULE PO SCH (13:20)
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
[2018-06-27] MEDS: CHOLECALCIFEROL 1,000 UNITS TAB PO SCH (09:03)
[2018-06-27] MEDS: ATOMOXETINE HCL 40 MG CAPSULE PO SCH (09:03)
[2018-06-27] MEDS: DESCOVY PO SCH (09:04)
[2018-06-27] MEDS: DOLUTEGRAVIR SODIUM PO SCH (09:04)
--- NOTE | 2018-06-27 12:21 | Psychiatric Progress Note ---
Date of Service June 27, 2018 Impression / Recommendations Impression The patient is a 38yo SWM with HIV and extensive substance dependency and impulsivity and interpersonal problems over his lifetime. 1. Safety: inpatient is least restrictive and most appropriate setting for care as patient does not have aftercare at this time as major remaining risk factor to be addressed. 2. Attention: Although it is difficult to discern amidst active substance use, I met this patient in 2011, and now, and reading his longitudinal hx and observing his mental status he seems to have sx of impulsivity and although not a good candidate for stimulants he may benefit from non-stimulant tx of ADHD- CT and he is tolerating day #2 of strattera 40mg wtih plan to advance to 80mg. 3. Mood and anxiety: Mood and anxiety were stable during period of claimed sobriety from 03/2017 to 11/2018 and so it is not clear if he has a true mood and anxiety disorder although we should watch closely will not start SSRI or SNRI, and will continue buspar 10mg/hs as he states it "calms my brain at night" but if strattera is effective for ADHD would consider if buspar is still needed. Continue to encourage group, milieu. 4. Polysubstance Dependence: Naltrexone may be an option for substance use disorder namely prior alcohol and opiates, but not robust for stimulant misuse. If he has trouble sleeping remeron low dose has some limited evidence in sleep for those with stimulant misuse. Patient would most likely benefit with support through the remaining and waning withdrawal off meth, ongoing withdrawal off nicotine, and support to contact PO and learn what his true discipline will be w ith new legal problems. This will then given him for clarity on his next step job kam, and flores kam and financial kam. He has support through Yonny his counselor, but it may be helpful to enroll him in Dual Diagnosis care which he is presently declining, but is open to behavioral health care. Inventory Assets Strengths: willingness to engage in inpatient care and aftercare Needs: improved impulse control and honesty with current supports about substance use and legal problems, and aftercare Risk Factors Assessment Male: Yes : Yes Do You Have Access To A Gun?: No Health Problems: Yes Mental Health Diagnoses: Yes Substance Use Disorders: Yes Previous Attempt: Yes Family History of Suicide: Yes Previous Psychiatric Hospitalization: Yes Hopelessness: Yes Smoker: Yes Protective Factors Assessment Employed: Yes (In hiring process at [employer] - will start July 12) Interval History Chief Complaint "I am tired". Review of Systems Sleep Information Total Hours of Sleep: 10.5 Sleep Comments: pt appeared to sleep 3.5 hrs during evening shift. pt given vistaril per rn. pt on q-15 minute checks Meal Information Percent Meal Consumed - Breakfast: 100 Percent Meal Consumed - Dinner: 100 Subjective Subjective Patient was seen & assessed and interval progress reviewed with Treatment Team He is noted by staff to isolate to room and not attending groups, is not willing to involve family or sewage reticulation drafting officer in his care. He is described as external locus of control focussed on others actions and events that lead him to be here. Met with patient at the bedside he was sleeping, states he slept most of yesterday and will plan to get up and attend the second group today. He is taking strattera with some mild nausea that is "tolerable" and he feels may pass, he denies other SE. He states he is not sure what his goals are today, "I need to make a plan to call my Dad to ask for money" He clarifies to state he is seen at [facility] by court order having 1-2 sessions left "they are closing" and he is not motivated to continue direct D&A services "I did all the sessions I had to do" but when confronted that he was not honest and checked all the boxes only to his own detriment of not having engaged the goal of care which was to help him become sober and abstain from substance use. He again notes "no place has evening hours and my job will give me a schedule and I will be less likely to use if I am working" [facility]. Mood is "low but not as low as when I came....gettting better," denies anxiety at this time, denies overt Si, intention or plan, deneis h/h/w. Ongoing racing thoughts and poor concentration " a little better I think" On ROS: he denies constitutional, denies GI other than noted above, and denies psych other than noted above Physical Exam Psychiatric Orientation: alert and oriented x 3 Apperance: appropriately dressed and appeared stated age Eye Contact: good eye contact Motor Behavior: steady gait and station and no abnormal motor movements Speech: normal rate/rhythm/volume of speech Affect: + blunted affect Mood: + depressed mood Thought Process: goal directed thought process, clear/coherent thought process and thought association intact Suicidal Thoughts: denies suicidal intent Homicidal Thoughts: denies homicidal thoughts Hallucinations: no auditory hallucinations and no visual hallucinations Cognition: recent memory grossly intact Estimated Intelligence: consistent with education level Insight: + limited insight Judgement: + limited judgement Vital Signs (Past 24 Hours) Last Vital Signs Temp 36.6 C 06/27/18 06:41 Pulse 80 06/27/18 06:42 Resp 16 06/27/18 06:41 BP 113/79 06/27/18 06:42 Pulse Ox 98 06/25/18 20:49 Results & Data Current Inpatient Medications Current Inpatient Medications: Current Inpatient Medications Acetaminophen (Tylenol) 650 mg PO Q4H PRN PRN Reason: Headache or Minor Fever Stop: 07/25/18 20:32 Al Hydrox/Mg Hydrox/Simethicone (Maalox) 30 ml PO Q4H PRN PRN Reason: GI Upset Stop: 07/25/18 20:32 Atomoxetine HCl (Strattera) 40 mg PO QAM LISA Stop: 06/29/18 09:01 Last Admin: 06/27/18 09:03 Dose: 40 mg Documented by: Atomoxetine HCl (Strattera) 80 mg PO QAM LISA Stop: 07/30/18 08:59 Bismuth Subsalicylate (Kaopectate) 15 ml PO PRN PRN PRN Reason: Loose Stool Stop: 07/25/18 20:32 Buspirone HCl (Buspar) 10 mg PO QPM LISA Stop: 07/26/18 20:59 Last Admin: 06/26/18 20:59 Dose: 10 mg Documented by: Dolutegravir Sodium (Tivicay) 1 ea PO DAILY LISA Stop: 07/26/18 08:59 Last Admin: 06/27/18 09:04 Dose: 1 ea Documented by: Hydroxyzine HCl (Vistaril) 50 mg PO HSZ PRN PRN Reason: Insomnia Stop: 07/25/18 20:32 Last Admin: 06/26/18 20:58 Dose: 50 mg Documented by: Hydroxyzine HCl (Vistaril) 25 mg PO Q4H PRN PRN Reason: Anxiety Stop: 07/25/18 20:32 Last Admin: 06/26/18 11:52 Dose: 25 mg Documented by: Magnesium Hydroxide (Milk Of Magnesia) 30 ml PO DAILY PRN PRN Reason: Heartburn Stop: 07/25/18 20:32 Nicotine Polacrilex (Nicorette 2mg) 1 piece MT UD PRN PRN Reason: Nicotine Withdrawal Stop: 07/25/18 20:32 Pt's Own Med: Descovy 200mg/25mg Tab 1 ea PO DAILY LISA Stop: 07/26/18 08:59 Last Admin: 06/27/18 09:04 Dose: 1 tabs Documented by: Sodium Chloride ([place] Nasal) 1 - 2 sprays NA PRN PRN PRN Reason: Nasal Dryness/Congestion Stop: 07/25/18 20:32 Vitamin D (Vitamin D3) 1,000 units PO QAM LISA Stop: 07/26/18 08:59 Last Admin: 06/27/18 09:03 Dose: 1,000 units Documented by: Post Discharge Appointments Primary Care Physician Name Of Family Doctor: Dr Pacheco Therapist Name of Therapist: none Director Biology Name of Director Biology: Melida Brown PA Support Services CPT Code CPT Code 74695
[2018-06-28 06:44] VITALS: TEMP 98.1
[2018-06-28] MEDS: DESCOVY PO SCH (08:55)
[2018-06-28] MEDS: ATOMOXETINE HCL 40 MG CAPSULE PO SCH (08:56)
[2018-06-28] MEDS: CHOLECALCIFEROL 1,000 UNITS TAB PO SCH (08:56)
[2018-06-28] MEDS: DOLUTEGRAVIR SODIUM PO SCH (08:56)
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
[2018-06-28 10:52] VITALS: BP 120/69; PULSE 75
[2018-06-30] MEDS ORDERED: ATOMOXETINE HCL 40 MG CAPSULE PO SCH (09:00)
== END 2018-06-28 13:00 | disposition home or self-care (01) | DRG 885 ==
LOC: ED 15:50 → 3S 19:44